=== PATIENT | female | born 2005 | race Caucasian/White ===

== ENCOUNTER 2023-01-03 22:18 | Emergency (ER) | payer OTHER ==
[~2023-01-03] VITALS: Ht 167.6 cm; Wt 74.4 kg
[2023-01-03 22:51] VITALS: BP 147/76
--- NOTE | 2023-01-03 23:24 | NUR ---
PT SIGNED WAIVER
== END 2023-01-04 00:03 | disposition home or self-care (01) ==
LOC: ER 22:25
DX: B34.9 Viral infection, unspecified (principal)
CPT/HCPCS: 71045-TC